=== PATIENT | male | born 1990 ===

== ENCOUNTER 2018-09-11 05:20 | Emergency (ER) | payer OTHER ==
--- NOTE | 2018-09-11 06:33 | ED PDOC ---
HPI: Skin/Bite Injury Chief Complaint (Nursing): Body Fluid Exposure History Per: Patient History/Exam Limitations: no limitations Onset/Duration Of Symptoms: Hrs Additional Complaint(s): Pt is a 27 y/o male [employer] who is presenting to ED with possible toxic exposure during work. 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 He noticed shortly after that the fluid had soaked through his wool gloves and had direct exposure with his skin. He states that he was told the rob contained cocaine, crystal meth, and a third unknown liquid. When he removed the gloves, he washed the skin profusely with water. He denies any pain, swelling, exfoliating skin, numbness/tingling, warmth, or any abnormal sensations. He denies any other exposure to his skin/eyes. He was prompted to come to ED out of concern for possible toxic exposure. Time of exposure was 1 hour ago. PMD: None PMHX: none NKDA Past Medical History Reviewed: Historical Data, Nursing Documentation, Vital Signs Vital Signs: Last Vital Signs Temp 97.8 F 09/11/18 05:45 Pulse 78 09/11/18 05:45 Resp 19 09/11/18 05:45 BP 129/62 09/11/18 05:45 Pulse Ox 97 09/11/18 05:45 - Medical History PMH: No Chronic Diseases - Surgical History Surgical History: No Surg Hx - Family History Family History: States: No Known Family Hx - Living Arrangements Living Arrangements: With Family - Social History Current smoker - smoking cessation education provided: No - Allergies Allergies/Adverse Reactions: Allergies Allergy/AdvReac Type Severity Reaction Status Date / Time avocado Allergy ITCHING Verified 09/11/18 05:48 Review of Systems Constitutional: Negative for: Fever, Chills Eyes: Negative for: Pain, Vision Change Physical Exam - Physical Exam Appears: Positive for: Well, Non-toxic, No Acute Distress Skin: Positive for: Normal Color (Both hands inspected carefully, no redness, swelling, vesicular, or skin exfoliating lesions. Normal temperature, sensory and motor in tact. Good radial pulse and good capillary refill. No gross abnromalities notes). 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 Pt is asymptomatic and examine is completely normal. Discharge home, f/u with Employee health. Can return to work. Dispose gloves. Disposition - Clinical Impression Clinical Impression: Exposure to toxic chemical - Patient ED Disposition Is Patient to be Admitted: No Counseled Patient/Family Regarding: Studies Performed, Diagnosis, Need For Followup - Disposition Disposition: Routine/Home Disposition Time: 06:42 Condition: FAIR Additional Instructions: Discharge home, f/u with Employee health. Can return to work. Dispose gloves. Instructions: Chemical Exposure to the Skin (DC) Forms: [employer] ([place]), [facility] School/Work Excuse
[2018-09-11 07:13] VITALS: BP 125/70; PULSE 72; RESP 18; TEMP 98; O2SAT 100
== END 2018-09-11 07:05 | disposition home or self-care (01) ==
LOC: H.ER 05:20
DX: Z57.5 Occupational exposure to toxic agents in other industries (principal)